=== PATIENT | female | born 1985 | race American Indian/Alaskan Native ===

== ENCOUNTER 2016-06-07 20:12 | Observation (INO) | payer BC ==
[2016-06-07 20:37] VITALS: BMI 42.5
--- NOTE | 2016-06-07 21:24 | ED PDOC ---
Arrival/HPI <Jonnathan Shetty - Last Filed: 06/08/16 01:05> - General Historian: Patient <Abad Velez - Last Filed: 06/08/16 01:35> - General Chief Complaint: Abdominal Pain Time Seen by Provider: 06/07/16 20:33 - History of Present Illness Narrative History of Present Illness (Text): 06/07/16 21:19 31yo morbidly obese female who present with complaint of abdominal pain that radiates to her groin/leg area x weeks. She also reports discoloration of her plantar toes and numbness of the toes x months. States she have not seen her PMD for over a year and couldn't see a Doctor faster because of her job. Came to ED today because she is afraid of having lower extremity blood clot. States Her pain is constant. denies any exacerbating/relieving factors. Denies nausea, vomiting, diarrhea, constipation, urinary symptoms, hematuria, chest pain, SOB, calf pain, fever, chills, any other complaint. (Abad Velez) Past Medical History - Provider Review Nursing Documentation Reviewed: Yes - Past History Past History: No Previous - Infectious Disease Hx of Infectious Diseases: None - Tetanus Immunization Tetanus Immunization: Unknown - Past Medical History Past Medical History: No Previous - Cardiac Hx Cardiac Disorders: No - Pulmonary Hx Respiratory Disorders: No - Neurological Hx Neurological Disorder: No - HEENT Hx HEENT Disorder: No - Renal Hx Renal Disorder: No - Endocrine/Metabolic Hx Endocrine Disorders: No - Hematological/Oncological Hx Blood Disorders: No - Integumentary Hx Dermatological Disorder: No - Musculoskeletal/Rheumatological Hx Musculoskeletal Disorders: No - Gastrointestinal Hx Gastrointestinal Disorders: No - Genitourinary/Gynecological Hx Genitourinary Disorders: No - Psychiatric Hx Psychophysiologic Disorder: No Hx Depression: No Hx Emotional Abuse: No Hx Physical Abuse: No Hx Substance Use: No - Surgical History Hx Section: Yes - Anesthesia Hx Anesthesia: Yes Hx Anesthesia Reactions: No Hx Malignant Hyperthermia: No - Suicidal Assessment Feels Threatened In Home Enviroment: No <Abad Velez - Last Filed: 06/08/16 01:35> Family/Social History - Physician Review Nursing Documentation Reviewed: Yes Family/Social History: Unknown Family HX Smoking Status: Never Smoked Hx Alcohol Use: Yes Frequency of alcohol use: Socially Hx Substance Use: No Hx Substance Use Treatment: No <Abad Velez A - Last Filed: 06/08/16 01:35> Allergies/Home Meds <Jonnathan Shetty - Last Filed: 06/08/16 01:05> <Abad Velez A - Last Filed: 06/08/16 01:35> Allergies/Adverse Reactions: Allergies No Known Allergies Allergy (Verified 06/07/16 20:37) Home Medications: Home Meds Medication Instructions Recorded Confirmed Amoxicillin [Amoxil 500 mg Cap] 500 mg PO Q6 04/06/16 04/06/16 Review of Systems - Physician Review All systems were reviewed & negative as marked: Yes - Review of Systems Constitutional: Normal Eyes: Normal ENT: Normal Respiratory: Normal Cardiovascular: Normal Gastrointestinal: Abdominal Pain. absent: Constipation, Diarrhea, Nausea, Vomiting, Hematochezia, Hematemesis Genitourinary Female: Normal Musculoskeletal: Arthralgias (B/L leg) Skin: Normal Neurological: Normal, Other (toes paresthesia) Endocrine: Normal Hemo/Lymphatic: Normal Psychiatric: Normal <Abad Velez A - Last Filed: 06/08/16 01:35> Physical Exam Vital Signs Reviewed: Yes Temperature: Afebrile Blood Pressure: Normal Pulse: Regular Respiratory Rate: Normal Appearance: Positive for: Well-Appearing, Non-Toxic, Comfortable Pain Distress: None Mental Status: Positive for: Alert and Oriented X 3 - Systems Exam Head: Present: Atraumatic, Normocephalic Pupils: Present: PERRL Extroacular Muscles: Present: EOMI Conjunctiva: Present: Normal Mouth: Present: Moist Mucous Membranes Neck: Present: Normal Range of Motion Respiratory/Chest: Present: Clear to Auscultation, Good Air Exchange. No: Respiratory Distress, Accessory Muscle Use Cardiovascular: Present: Regular Rate and Rhythm, Normal S1, S2. No: Murmurs Abdomen: Present: Tenderness (Pelvic tenderness), Normal Bowel Sounds, Other ( soft). No: Distention, Peritoneal Signs, Rebound, Guarding, McBurney's Point Tender, Rovsing's Sign Present Back: Present: Normal Inspection Upper Extremity: Present: Normal Inspection. No: Cyanosis, Edema Lower Extremity: Present: Normal Inspection, NORMAL PULSES, Normal ROM, Neurovascularly Intact, Other (Mild blackish discoloration noted on b/l plantar aspect of 4th toes). No: Edema, CALF TENDERNESS, Cyanosis, Josy's Sign, Tenderness, Swelling, Erythema, Deformity, Temperature Abnormalties Neurological: Present: GCS=15, CN II-XII Intact, Speech Normal, Motor Func Grossly Intact, Normal Sensory Function, Normal Cerebellar Funct, Norm Deep Tendon Reflexes, Gait Normal, Memory Normal, Normal 2Pt Descrimination, Other ( No focal neurological deficit) Skin: Present: Warm, Dry, Normal Color. No: Rashes Psychiatric: Present: Alert, Oriented x 3, Normal Insight, Normal Concentration <AgustinHappiness A - Last Filed: 06/08/16 01:35> Vital Signs Temp Pulse Resp BP Pulse Ox 06/08/16 00:00 98.5 F 80 16 130/78 98 06/07/16 20:37 97.8 F 78 16 113/77 100 06/07/16 20:36 97.8 F 78 16 113/77 100 Medical Decision Making <Jonnathan Shetty - Last Filed: 06/08/16 01:05> <Abad Velez A - Last Filed: 06/08/16 01:35> ED Course and Treatment: 06/08/16 01:13 Pt in ED for stated history. She was comfortable in ED. Lab was unremarkable. Mild elevation of D dimer was noted. LE doppler was ordered. Pt denied SOB, chest pain, diaphoresis, recent travel, OCP use in ED. PeUS tech Doppler was negative for DVT Abdominal/Pelvis CT IMPRESSION: Negative CT abdomen/pelvis. No acute process is identified. Result was DW the pt. She was DC home and advised to f/u with her PMD. Rx of Pepcid was given. TRT ED for any new or worsening symptoms. (AgustinHappiness A) - Lab Interpretations Lab Results: Lab Results 06/07/16 21:10: Urine Color Yellow, Urine Appearance Clear, Urine pH 6.0, Ur Specific [place] 1.025, Urine Protein Trace H, Urine Glucose (UA) Negative, Urine Ketones Trace H, Urine Blood Negative, Urine Nitrate Negative, Urine Bilirubin Negative, Urine Urobilinogen 1.0 H, Ur Leukocyte Esterase Negative, Urine RBC 0 - 2, Urine WBC 0 - 2, Ur Epithelial Cells 1 - 3, Urine Bacteria Occ - RAD Interpretation Radiology Orders: 06/07/16 20:55 ABD & PELVIS W/O PO OR IV CONT [CT] Stat - Medication Orders Current Medication Orders: Discontinued Medications Famotidine (Pepcid) 20 mg IVP STAT STA Stop: 06/07/16 20:56 Last Admin: 06/07/16 21:30 Dose: 20 MG IVP Administration Document 06/07/16 21:30 KKL (Rec: 06/07/16 21:53 KKL [facility] [id number]) Charges for Administration # of IVP Administrations 1 ED OBSERVATION <Jonnathan Shetty - Last Filed: 06/08/16 01:05> Discharge: Yes Date of observation admission: 06/07/16 Time of observation admission: 21:30 <Abad Velez - Last Filed: 06/08/16 01:35> - Observation admission statement Patient is being placed in observation because:: Lab ordered NS, Pepcid ordered Abdominal Ct ordered Will reassess (Abad Velez) - Goals of Observation Goals of observation are:: Lab ordered NS, Pepcid ordered Abdominal Ct ordered Will reassess (Abad Velez) - PA / ART PREPARATOR / Resident Statement MD/DO has reviewed & agrees with the documentation as recorded. MD/DO has examined the patient and agrees with the treatment plan. <Jonnathan Shetty - Last Filed: 06/08/16 01:05> Disposition/Present on Arrival <Jonnathan Shetty - Last Filed: 06/08/16 01:05> - Present on Arrival Any Indicators Present on Arrival: No History of DVT/PE: No History of Uncontrolled Diabetes: No Urinary Catheter: No History of Decub. Ulcer: No History Surgical Site Infection Following: None - Disposition Have Diagnosis and Disposition been Completed?: Yes Disposition Time: 01:20 Patient Plan: Transfer To <Abad Velez - Last Filed: 06/08/16 01:35> - Disposition Diagnosis: Abdominal pain, Leg pain, Obesity Disposition: HOME/ ROUTINE Patient Problems: Current Active Problems Problem Status Diagnosed Abdominal pain Acute Leg pain Acute Obesity Acute Condition: STABLE
[2016-06-07 21:25] LABS: URINE BILIRUBIN NEGATIVE (NEGATIVE); URINE BLOOD NEGATIVE (NEGATIVE); URINE GLUCOSE (UA) NEGATIVE (NEGATIVE); URINE KETONE TRACE mg/dL (NEGATIVE); URINE LEUKOCYTE ESTERASE NEGATIVE Leu/uL (NEGATIVE); URINE PROTEIN TRACE mg/dL (<30 mg/dL)
[2016-06-07 21:33] LABS: URINE APPEARANCE CLEAR (CLEAR); URINE COLOR YELLOW (YELLOW)
[2016-06-07 21:57] LABS: URINE BACTERIA OCC (NEG); URINE RBC 0 - 2 /hpf (0-2); URINE WBC 0 - 2 /hpf (0-6)
[2016-06-07 22:10] LABS: ADD MANUAL DIFF? NO
[2016-06-07 22:16] LABS: BASO # 0.02 K/mm3 (0.0-2.0); BASO % 0.3 % (0.0-3.0); EOS # 0.2 (0.0-0.7); EOS % 2.8 % (1.5-5.0); GRAN # 3.31 (1.4-6.5); GRAN % 50.8 % (50.0-68.0); HEMATOCRIT 36.7 % (36.0-48.0); LYMPH # 2.6 (1.2-3.4); LYMPH % 39.8 % (22.0-35.0); MEAN CELL VOLUME 80.3 fL (80.0-105.0); MEAN CORPUSCULAR HEMOGLOBIN 24.9 pg (25.0-35.0); MEAN CORPUSCULAR HGB CONC 31.1 g/dl (31.0-37.0); MEAN PLATELET VOLUME 10.5 fl (7.0-11.0); MONO # 0.4 (0.1-0.6); MONO % 6.3 % (1.0-6.0); PLATELET COUNT 314 10^3/uL (120.0-450.0); RED CELL DISTRIBUTION WIDTH 14.6 % (11.5-14.5); WHITE BLOOD COUNT 6.5 10^3/ul (4.5-11.0)
[2016-06-07 22:31] LABS: INR 1.05 (0.93-1.08); PARTIAL THROMBOPLASTIN TIME 30.7 Seconds (23.7-30.8)
[2016-06-07 22:38] LABS: ALKALINE PHOSPHATASE 58 U/L (38-133); ALT/SGPT 25 U/L (7-56); AST/SGOT 32 U/L (15-39); BILIRUBIN,TOTAL 0.6 mg/dL (0.2-1.3); BLOOD UREA NITROGEN 11 mg/dL (7-21); CALCIUM 9.3 mg/dL (8.4-10.5); CARBON DIOXIDE 28 mmol/L (21-33); CHLORIDE 102 mmol/L (98-107); GFR AFRICAN-AMERICAN > 60; GLUCOSE,RANDOM 86 mg/dL (70-110); LIPASE 49 U/L (23-300); POTASSIUM 3.7 mmol/L (3.6-5.0); SODIUM 138 mmol/L (132-148); TOTAL PROTEIN 7.8 g/dL (5.8-8.3)
[2016-06-07 22:39] LABS: D DIMER 0.52 mg/L FEU (0-0.50)
[2016-06-07 23:09] LABS: THYROID STIMULATING HORMONE 2.65 mIU/mL (0.46-4.68)
[2016-06-08 01:34] VITALS: O2SAT 98
[2016-06-08 02:16] VITALS: BP 110/70; PULSE 78; RESP 18; TEMP 98.8
--- NOTE | 2016-06-08 08:51 | US ---
HISTORY: Leg pain and swelling. Evaluate for DVT PHYSICIAN(S): Etienne Solo MD. TECHNIQUE: Duplex sonography and color-flow Doppler with graded compression were used to evaluate the deep venous systems of both lower extremities. FINDINGS: The visualized deep venous systems of both lower extremities are sonographically normal and compressible. Normal wave forms and augmentation are seen. There is no sonographic evidence for deep venous thrombosis in the visualized segments of both lower extremities. IMPRESSION: No sonographic evidence for deep venous thrombosis in the visualized segments of both lower extremities.
--- NOTE | 2016-06-08 10:53 | CT ---
PROCEDURE: CT Abdomen and Pelvis without intravenous contrast HISTORY: abdominal pain COMPARISON: None. TECHNIQUE: Multiple contiguous axial images were performed through the abdomen and pelvis without the use of intravenous contrast. Subsequently, sagittal and coronal reformatted images obtained. Radiation dose: Total exam DLP = 1279 mGy-cm. This CT exam was performed using one or more of the following dose reduction techniques: Automated exposure control, adjustment of the mA and/or kV according to patient size, and/or use of iterative reconstruction technique. FINDINGS: LOWER THORAX: Mild bibasilar atelectasis. LIVER: Unremarkable. No gross lesion or ductal dilatation. GALLBLADDER AND BILE DUCTS: Contracted. PANCREAS: Unremarkable. No gross lesion or ductal dilatation. SPLEEN: Unremarkable. ADRENALS: Unremarkable. No mass. KIDNEYS AND URETERS: Unremarkable. No hydronephrosis. No solid mass. Punctate 1 millimeter calcific density seen at the level of the distal left ureter on series 2, image 164, possibly a calcified phlebolith. No proximal hydroureter of this level. More prominent calcified phleboliths more posteriorly in the pelvis. VASCULATURE: Unremarkable. No aortic aneurysm. BOWEL: No obstruction. No gross mural thickening. Under distended and or mildly thickened descending and sigmoid colon. Clinical correlation. APPENDIX: Unremarkable. Normal appendix. PERITONEUM: Unremarkable. No free fluid. No free air. LYMPH NODES: Unremarkable. No enlarged lymph nodes. BLADDER: Unremarkable. REPRODUCTIVE: Heterogeneous and prominent uterus. BONES: No acute fracture. OTHER FINDINGS: None. IMPRESSION: Punctate 1 millimeter calcific density seen at the level of the distal left ureter on series 2, image 164, possibly a calcified phlebolith. No proximal hydroureter of this level. Under distended and or mildly thickened descending and sigmoid colon. Clinical correlation. These findings were preliminarily reported at 12:50 a.m. on 06/08/[address] Mahesh Phillips from [facility].
== END 2016-06-08 01:20 | disposition home or self-care (01) ==
LOC: ED 20:12 → EROBSV 21:30
PROVIDERS: ADMIT Emergency Medicine; ATTEND Emergency Medicine
DX: E66.9 Obesity, unspecified (principal); R10.9 Unspecified abdominal pain; M79.605 Pain in left leg; M79.604 Pain in right leg
CPT/HCPCS: 74176; 80053; 81001; 83690; 84439; 84443; 85025; 85378; 85610; 85730; 93970; 96374; 99283; G0378

== ENCOUNTER 2017-05-01 17:56 | Emergency (ER) | payer BC, OTHER ==
[2017-05-01 18:15] VITALS: BMI 44.6
[2017-05-01 18:18] VITALS: BP 120/75; PULSE 77; RESP 19; TEMP 98.4; O2SAT 99
--- NOTE | 2017-05-01 18:49 | ED PDOC ---
Arrival/HPI - General Historian: Patient - History of Present Illness Time/Duration: > week, < month Symptom Onset: Gradual Symptom Course: Unchanged Quality: Aching, Stabbing <Fran Kwan - Last Filed: 05/01/17 21:08> <YoelChandanJacquelineJay - Last Filed: 05/02/17 16:02> - General Chief Complaint: Headache Time Seen by Provider: 05/01/17 18:20 - History of Present Illness Narrative History of Present Illness (Text): 05/01/17 18:43 Patient is a 32F with no PMH who comes to the ED with a CC of an headache over the R. forehead radiating to the back of her head. She has had this headache for 3 weeks. No thing specific triggered the event. Nothing makes the headache worse. Nothing makes the headache better but the patient states that she does not take medicine. She describes the pain as throbbing in nature. No radiation. The patient states the pain comes and goes. She denies any photophobia or aura of any type. No vomiting but does complain of nausea however this has been present for several years. She is also complaining of chest pain that is sharp and stabbing and has been present for many years. Denies sick contacts or recent travel. No fever or chills. Denies dysuria or blood in urine. No diarrhea or constipation. (Fran Kwan) Past Medical History - Past History Past History: No Previous - Infectious Disease Hx of Infectious Diseases: None - Tetanus Immunization Tetanus Immunization: Unknown - Past Medical History Past Medical History: No Previous - Cardiac Hx Cardiac Disorders: No - Pulmonary Hx Respiratory Disorders: No - Neurological Hx Neurological Disorder: No - HEENT Hx HEENT Disorder: No - Renal Hx Renal Disorder: No - Endocrine/Metabolic Hx Endocrine Disorders: No - Hematological/Oncological Hx Blood Disorders: No - Integumentary Hx Dermatological Disorder: No - Musculoskeletal/Rheumatological Hx Musculoskeletal Disorders: No - Gastrointestinal Hx Gastrointestinal Disorders: No - Genitourinary/Gynecological Hx Genitourinary Disorders: No - Psychiatric Hx Psychophysiologic Disorder: No Hx Depression: No Hx Emotional Abuse: No Hx Physical Abuse: No Hx Substance Use: No - Surgical History Hx Section: Yes - Anesthesia Hx Anesthesia: Yes Hx Anesthesia Reactions: No Hx Malignant Hyperthermia: No - Suicidal Assessment Feels Threatened In Home Enviroment: No <Fran Kwan - Last Filed: 05/01/17 21:08> Family/Social History Family/Social History: No Known Family HX Smoking Status: Never Smoked Hx Alcohol Use: No Hx Substance Use: No Hx Substance Use Treatment: No <Fran Kwan - Last Filed: 05/01/17 21:08> Allergies/Home Meds <Fran Kwan - Last Filed: 05/01/17 21:08> <YoelCarina - Last Filed: 05/02/17 16:02> Allergies/Adverse Reactions: Allergies No Known Allergies Allergy (Verified 05/01/17 18:15) Review of Systems - Review of Systems Constitutional: Normal. absent: Fevers Eyes: Normal. absent: Vision Changes, Photophobia, Eye Pain ENT: Normal. absent: Sore Throat Respiratory: Normal. absent: SOB, Cough, Sputum, Wheezing Cardiovascular: Normal, Chest Pain (sharp and stabbing and present for many years) Gastrointestinal: Normal, Nausea (present for many years). absent: Abdominal Pain, Diarrhea, Vomiting, Appetite Changes, Hematochezia, Hematemesis, Anorexia Genitourinary Female: absent: Dysuria, Frequency, Hematuria, Vaginal Bleeding, Vaginal Discharge Musculoskeletal: absent: Arthralgias, Back Pain Skin: absent: Rash Neurological: Headache. absent: Dizziness, Focal Weakness, Gait Changes, Speech Changes, Facial Droop, Disequilibrium, Seizure Endocrine: Diaphoresis, Polyuria <Fran Kwan - Last Filed: 05/01/17 21:08> Physical Exam Vital Signs Reviewed: Yes Temperature: Afebrile Blood Pressure: Normal Pulse: Regular Respiratory Rate: Normal Appearance: Positive for: Well-Appearing, Non-Toxic, Comfortable Pain Distress: None Mental Status: Positive for: Alert and Oriented X 3 - Systems Exam Head: Present: Atraumatic, Normocephalic Pupils: Present: PERRL Extroacular Muscles: Present: EOMI Conjunctiva: Present: Normal Mouth: Present: Moist Mucous Membranes Pharnyx: Present: Normal Nose (External): Present: Atraumatic Nose (Internal): Present: Normal Inspection Neck: Present: Normal Range of Motion Respiratory/Chest: Present: Clear to Auscultation, Good Air Exchange. No: Respiratory Distress, Accessory Muscle Use Cardiovascular: Present: Regular Rate and Rhythm Abdomen: Present: Normal Bowel Sounds. No: Tenderness, Distention, Peritoneal Signs Upper Extremity: Present: Normal Inspection Lower Extremity: Present: Normal Inspection Neurological: Present: GCS=15, CN II-XII Intact, Speech Normal Skin: Present: Warm, Dry, Normal Color. No: Rashes Psychiatric: Present: Alert, Oriented x 3 <Fran Kwan - Last Filed: 05/01/17 21:08> Vital Signs Temp Pulse Resp BP Pulse Ox 05/01/17 18:17 98.4 F 77 19 120/75 99 - Lab Interpretations Lab Results: Lab Results 05/01/17 19:35: Urine HCG, Qual Negative - Medication Orders Current Medication Orders: Discontinued Medications Diphenhydramine HCl (Benadryl) 25 mg IVP STAT STA Stop: 05/01/17 19:05 Last Admin: 05/01/17 19:58 Dose: 25 mg IVP Administration Document 05/01/17 19:58 RG (Rec: 05/01/17 19:58 RG [id number]) Charges for Administration # of IVP Administrations 1 Famotidine (Pepcid) 20 mg PO STAT STA Stop: 05/01/17 19:05 Last Admin: 05/01/17 19:57 Dose: 20 mg Sodium Chloride (Sodium Chloride 0.9%) 1,000 mls @ 999 mls/hr IV .Q1H1M STA Stop: 05/01/17 20:08 Last Admin: 05/01/17 19:08 Dose: 999 mls/hr eMAR Start Stop Document 05/01/17 19:08 HI (Rec: 05/01/17 21:02 HI [id number]) Intravenous Solution Start Date 05/01/17 Start Time 19:08 Ketorolac Tromethamine (Toradol) 15 mg IVP STAT STA Stop: 05/01/17 19:05 Last Admin: 05/01/17 19:58 Dose: 15 mg MAR Pain Assessment Document 05/01/17 19:58 RG (Rec: 05/01/17 19:58 RG [id number]) Pain Reassessment Is this a pain reassessment? Yes Location Upper or Lower Upper Pain Location Body Ultrasound Tester Description Description Constant Intensity of Pain at present 6 IVP Administration Document 05/01/17 19:58 RG (Rec: 05/01/17 19:58 RG [id number]) Charges for Administration # of IVP Administrations 1 Re-Assess: EMELYN Pain Assessment Document 05/01/17 20:58 HI (Rec: 05/01/17 22:29 HI [id number]) Pain Reassessment Is this a pain reassessment? Yes Sleep Is patient sleeping during reassessment? Yes Metoclopramide HCl (Reglan) 20 mg IVP STAT STA Stop: 05/01/17 19:05 Last Admin: 05/01/17 19:57 Dose: 20 mg IVP Administration Document 05/01/17 19:57 RG (Rec: 05/01/17 19:57 RG [id number]) Charges for Administration # of IVP Administrations 1 - PA / ENGINE MONITOR / Resident Statement MD/DO has reviewed & agrees with the documentation as recorded. <Carina Diallo - Last Filed: 05/02/17 16:02> Disposition/Present on Arrival - Present on Arrival Any Indicators Present on Arrival: No History of DVT/PE: No History of Uncontrolled Diabetes: No Urinary Catheter: No History of Decub. Ulcer: No History Surgical Site Infection Following: None - Disposition Have Diagnosis and Disposition been Completed?: Yes Disposition Time: 21:08 Patient Plan: Discharge <Fran Kwan - Last Filed: 05/01/17 21:08> <Carina Diallo - Last Filed: 05/02/17 16:02> - Disposition Diagnosis: Migraine Disposition: HOME/ ROUTINE Condition: GOOD Discharge Instructions (ExitCare): Headache, Adult, Migraine Headache (DC), Headache, Adult (DC), Migraine Headaches in Adults Prescriptions: Acetaminophen/Butalbital/Caf [Fioricet] 1 tab PO Q4H 30 Days tab MDD 6 Tablets Referrals: [facility] Trevor Req, [Non-Staff] - Follow up with primary Forms: [employer] (Thai)
[2017-05-01] MEDS ORDERED: DiphenhydrAMINE 50 mg/ml Inj IVP STA (19:04)
[2017-05-01] MEDS ORDERED: Sodium Chloride 0.9% 1,000 ML IV STA (19:08)
--- NOTE | 2017-05-02 10:29 | CARD ---
APPROVED REPORT EKG Measurement Heart [id number] <Conclusion> Normal sinus rhythm Normal ECG
== END 2017-05-01 22:15 | disposition home or self-care (01) ==
LOC: ED 17:56
DX: G43.909 Migraine, unspecified, not intractable, without status migrainosus (principal)
CPT/HCPCS: 84703; 93005; 96374; 96375; 99285; J1200; J1885; J2765; J7040

== ENCOUNTER 2017-12-11 18:04 | Emergency (ER) | payer OTHER ==
--- NOTE | 2017-12-11 19:11 | ED PDOC ---
Arrival/HPI - General Time Seen by Provider: 12/11/17 18:15 Historian: Patient - History of Present Illness Narrative History of Present Illness (Text): 12/11/17 19:05 32 year old female, with no significant past medical history, presents to the Emergency department complaining of right knee pain since few months. Patient reports mild discoloration today, stating "blue-black spots" prompting her to present to the Emergency department for medical evaluation. Patient additionally reports history of cough since 1 year. Patient denies any recent fall or trauma. Patient denies any recent MVA. Patient denies any fevers, chills, headache, dizziness, chest pain, shortness of breath, dyspnea on exertion, abdominal pain, nausea, vomiting, diarrhea, back pain, neck pain, swelling, numbness or tingling, or any other complaints. Patient denies any tobacco or marijuana use. Patient denies any recent alcohol intake. PMD: NONE 12/12/17 20:31 Time/Duration: > month Symptom Onset: Gradual Symptom Course: Unchanged Activities at Onset: Light Context: Home Past Medical History - Provider Review Nursing Documentation Reviewed: Yes - Past History Past History: No Previous - Infectious Disease Hx of Infectious Diseases: None - Tetanus Immunization Tetanus Immunization: Unknown - Past Medical History Past Medical History: No Previous - Cardiac Hx Cardiac Disorders: No - Pulmonary Hx Respiratory Disorders: No - Neurological Hx Neurological Disorder: No - HEENT Hx HEENT Disorder: No - Renal Hx Renal Disorder: No - Endocrine/Metabolic Hx Endocrine Disorders: No - Hematological/Oncological Hx Blood Disorders: No - Integumentary Hx Dermatological Disorder: No - Musculoskeletal/Rheumatological Hx Musculoskeletal Disorders: No - Gastrointestinal Hx Gastrointestinal Disorders: No - Genitourinary/Gynecological Hx Genitourinary Disorders: No - Psychiatric Hx Psychophysiologic Disorder: No Hx Depression: No Hx Emotional Abuse: No Hx Physical Abuse: No Hx Substance Use: No - Surgical History Hx Section: Yes - Anesthesia Hx Anesthesia: Yes Hx Anesthesia Reactions: No Hx Malignant Hyperthermia: No - Suicidal Assessment Feels Threatened In Home Enviroment: No Family/Social History - Physician Review Nursing Documentation Reviewed: Yes Family/Social History: No Known Family HX Smoking Status: Never Smoked Hx Alcohol Use: No Hx Substance Use: No Hx Substance Use Treatment: No Allergies/Home Meds Allergies/Adverse Reactions: Allergies tomato Allergy (Verified 12/11/17 19:25) ANAPHYLAXIS Review of Systems - Physician Review All systems were reviewed & negative as marked: Yes - Review of Systems Constitutional: absent: Fevers Respiratory: Cough. absent: SOB Cardiovascular: absent: Chest Pain, GONZALES Gastrointestinal: absent: Abdominal Pain, Diarrhea, Nausea, Vomiting Musculoskeletal: Other (right knee discomfort). absent: Back Pain, Neck Pain Neurological: absent: Headache, Dizziness Physical Exam Respiratory Rate: Normal Appearance: Positive for: Well-Appearing, Non-Toxic, Comfortable Pain Distress: None Mental Status: Positive for: Alert and Oriented X 3 - Systems Exam Head: Present: Atraumatic, Normocephalic Pupils: Present: PERRL Extroacular Muscles: Present: EOMI Conjunctiva: Present: Normal Mouth: Present: Moist Mucous Membranes Neck: Present: Normal Range of Motion Respiratory/Chest: Present: Clear to Auscultation, Good Air Exchange. No: Respiratory Distress, Accessory Muscle Use Cardiovascular: Present: Regular Rate and Rhythm, Normal S1, S2. No: Murmurs Abdomen: No: Tenderness, Distention, Peritoneal Signs Back: Present: Normal Inspection Upper Extremity: Present: Normal Inspection. No: Cyanosis, Edema Lower Extremity: Present: Normal Inspection, NORMAL PULSES, Normal ROM, Neurovascularly Intact. No: Edema, Tenderness, Swelling Neurological: Present: GCS=15, CN II-XII Intact, Speech Normal Skin: Present: Warm, Dry, Normal Color. No: Rashes Psychiatric: Present: Alert, Oriented x 3, Normal Insight, Normal Concentration Medical Decision Making ED Course and Treatment: 12/11/17 19:13 Impression: 32 year old female presents to the Emergency department complaining of right knee pain. No erythema or crepitus to joint. No hip pain. No ankle pain. N/v Intact distally. No trauma or dislocation. No hx of STD or abnl vaginal d/c Plan: -- X-ray of right knee -- Urinalysis, hcG -- Reassess and disposition Prior Visits: Notes and results from previous visits were reviewed. Progress Notes: 12/11/17 20:39 Xray unremarkable pt in NAd, ambulating well without issue, remains n/v intact clear for d/c home - Scribe Statement The provider has reviewed the documentation as recorded by the Scribe Armida Pratt. All medical record entries made by the Scribe were at my direction and personally dictated by me. I have reviewed the chart and agree that the record accurately reflects my personal performance of the history, physical exam, medical decision making, and the department course for this patient. I have also personally directed, reviewed, and agree with the discharge instructions and disposition. Disposition/Present on Arrival - Present on Arrival Any Indicators Present on Arrival: No History of DVT/PE: No History of Uncontrolled Diabetes: No Urinary Catheter: No History Surgical Site Infection Following: None - Disposition Have Diagnosis and Disposition been Completed?: Yes Diagnosis: Knee pain, right Disposition: HOME/ ROUTINE Disposition Time: 20:39 Condition: GOOD Discharge Instructions (ExitCare): Contusion (DC), Knee Pain (DC) Additional Instructions: REVA BARDALES, thank you for letting us take care of you today. Your provider was Peyman Coreas and you were treated for SWOLLEN LEG/THROAT PROBLEM. The emergency medical care you received today was directed at your acute symptoms. If you were prescribed any medication, please fill it and take as directed. It may take several days for your symptoms to resolve. Return to the Emergency Department if your symptoms worsen, do not improve, or if you have any other problems. Please contact your doctor or call one of the physicians/clinics you have been referred to that are listed on the Patient Visit Information form that is included in your discharge packet. Bring any paperwork you were given at discharge with you along with any medications you are taking to your follow up visit. Our treatment cannot replace ongoing medical care by a primary care provider outside of the emergency department. Thank you for allowing the [facility] team to be part of your care today. If you had an X-Ray or CT scan: A Radiologist will review the ED reading if any change in treatment is needed we will contact you. If you had a blood, urine, or wound culture: It will take several days for the results, if any change in treatment is needed we will contact you. If you had an STI test: It will take 48 hours for the results. Please call after 1 week if you have not heard back. Referrals: Amairani Loredo MD [Medical Doctor] - Follow up with primary [facility] [Outside] - Follow up with primary Forms: [facility] (Cuban)
[2017-12-11 19:20] VITALS: RESP 18; O2SAT 100
[2017-12-11 19:21] VITALS: BMI 46.0
[2017-12-11 23:43] VITALS: BP 110/62; PULSE 81; TEMP 98
--- NOTE | 2017-12-12 09:55 | RAD ---
Date of service: 12/11/2017 PROCEDURE: Right Knee Radiographs. HISTORY: r knee pain COMPARISON: None. FINDINGS: BONES: No acute fracture or destructive bony lesion appreciated. JOINTS: Frontal view somewhat limited and evaluation of patella is compromised. Lateral subluxation is not favored but is difficult to completely exclude. Clinically correlate further. No subluxation or dislocation of the femur appreciated. JOINT EFFUSION: None. OTHER FINDINGS: None. IMPRESSION: No fracture identified right knee. Subluxation of the patella laterally is difficult to completely exclude however positioning is suboptimal and the appearance may be normal in the somewhat oblique frontal view. Clinically correlate further. Examination otherwise unremarkable.
== END 2017-12-11 21:00 | disposition home or self-care (01) ==
LOC: ED 18:04
DX: M25.561 Pain in right knee (principal)